=== PATIENT | male | born 1945 | race Caucasian/White ===

== ENCOUNTER → 2018-03-13 | Outpatient (CLI) | payer MEDICARE, OTHER | LOC: COL.RAD 09:14 | DX: M17.0 Bilateral primary osteoarthritis of knee (principal); M19.022 Primary osteoarthritis, left elbow; M19.021 Primary osteoarthritis, right elbow; M19.032 Primary osteoarthritis, left wrist; M47.893 Other spondylosis, cervicothoracic region; M47.896 Other spondylosis, lumbar region ==

== ENCOUNTER 2018-03-27 10:55 | Outpatient (CLI) | payer MEDICARE, OTHER ==
[~2018-03-27] VITALS: Ht 183 cm; Wt 114.5 kg
[2018-03-27 11:31] LABS: HEMATOCRIT 47.6 % (42.0-52.0); HEMOGLOBIN 17.1 g/dl (13.5-18.0); MEAN CELL VOLUME 91 fl (80.0-100.0); MEAN CORPUSCULAR HEMOGLOBIN 33 pg (27.0-31.0); MEAN CORPUSCULAR HGB CONC 36 g/dl (33.0-37.0); MEAN PLATELET VOLUME 10.4 fl (7.4-10.4); PLATELET COUNT 148 K/mm3 (130-400); RED BLOOD COUNT 5.26 M/mm3 (4.20-5.60); REDCELL DISTRIBUTION WIDTH-CV 11.9 % (11.5-14.5)
[2018-03-27 11:39] LABS: INR 1.1 (0.8-3.0); PROTHROMBIN TIME 12.4 SECONDS (9.7-12.8)
[2018-03-27 11:40] LABS: CREATININE, serum 0.8 mg/dL (0.66-1.25); POTASSIUM 3.9 mmol/L (3.4-5.0)
[2018-03-27] MEDS ORDERED: ADVIL200 MG PO (12:03)
[2018-03-27] MEDS ORDERED: NORVASC 5MG5 MG/TAB PO ×2 (12:03→12:56)
[2018-03-27] MEDS ORDERED: NEURONTIN300 MG/CAP PO (12:04)
[2018-03-27] MEDS ORDERED: GLUCOPHAGE500 MG/TAB PO (12:05)
[2018-03-27] MEDS ORDERED: PRINIVIL2.5 MG PO (12:05)
[2018-03-27] MEDS ORDERED: CRESTOR 10MG10 MG PO (12:06)
[2018-03-27] MEDS ORDERED: FLOMAX 0.40.4 MG/CAP PO (12:06)
[2018-03-27] MEDS ORDERED: HALCION 0.0.125 MG/T PO (12:07)
[2018-03-27] MEDS ORDERED: ASPIRIN 81M81 MG/TA2 PO (12:08)
[2018-03-27] MEDS ORDERED: VITAMIN D 50,1.25 MG PO (12:09)
[2018-03-27 12:10] VITALS: BP 141/87; PULSE 66; TEMP 97.5
[2018-03-27] MEDS ORDERED: PRINIVIL5 MG PO (12:57)
[2018-03-27 13:05] VITALS: BP 138/86; PULSE 65
[2018-03-27 13:20] VITALS: BP 135/87; PULSE 66
[2018-03-27 13:40] VITALS: BP 136/87; PULSE 61
[2018-03-27 13:50] VITALS: BP 135/88; PULSE 60
[2018-03-27] MEDS ORDERED: NORVASC 10MG10 MG PO (14:44)
== END 2018-03-27 15:40 | disposition home or self-care (01) ==
LOC: COL.RAD 10:55
PROVIDERS: Internal Medicine Cardiovascular Disease
DX: I08.2 Rheumatic disorders of both aortic and tricuspid valves (principal)
CPT/HCPCS: J2250; J3010

== ENCOUNTER 2018-05-15 10:58 | Day surgery (SDC) | payer MEDICARE, OTHER ==
[2018-05-15] VITALS (10 sets, daily range): BP systolic 113–151; BP diastolic 67–85; PULSE 61–82; TEMP 97.3–98.1
[~2018-05-15] VITALS: Ht 182.9 cm; Wt 114.2 kg
[~2018-05-15 10:58] MED LIST: ADVIL200 MG PO; ASPIRIN 81M81 MG/TA2 PO; CRESTOR 10MG10 MG PO; FLOMAX 0.40.4 MG/CAP PO; GLUCOPHAGE500 MG/TAB PO; HALCION 0.0.125 MG/T PO; NEURONTIN300 MG/CAP PO; NORVASC 10MG10 MG PO; NORVASC 5MG5 MG/TAB PO; PRINIVIL2.5 MG PO; PRINIVIL5 MG PO; VITAMIN D 50,1.25 MG PO
[2018-05-15] MEDS ORDERED: GLUCOPHAGE500 MG/TAB PO (12:12)
[2018-05-15] MEDS ORDERED: CRESTOR40 MG PO (12:16)
[2018-05-15] MEDS ORDERED: VITAMIN D 50,1.25 MG PO (12:17)
[2018-05-15] MEDS ORDERED: PRINIVIL40 MG PO (12:18)
[2018-05-15] MEDS ORDERED: HALCION0.25 MG PO (12:20)
[2018-05-16 01:12] VITALS: BP 128/47; PULSE 64; TEMP 98
[2018-05-16 04:42] VITALS: BP 136/73; PULSE 67; TEMP 98.7
[2018-05-16 08:39] VITALS: BP 142/79; PULSE 68; TEMP 97.8
[2018-05-16 12:30] VITALS: BP 125/68; PULSE 65; TEMP 97.4
== END 2018-05-16 16:51 | disposition home or self-care (01) ==
LOC: SDCO 10:58 → SURG 13:50 → SDCO 14:30
DX: N40.1 Benign prostatic hyperplasia with lower urinary tract symptoms (principal); R35.1 Nocturia; R39.12 Poor urinary stream; R35.0 Frequency of micturition; R39.15 Urgency of urination; E11.40 Type 2 diabetes mellitus with diabetic neuropathy, unspecified; E78.00 Pure hypercholesterolemia, unspecified; I10 Essential (primary) hypertension; N32.81 Overactive bladder; I25.10 Atherosclerotic heart disease of native coronary artery without angina pectoris; G47.33 Obstructive sleep apnea (adult) (pediatric); F32.9 Major depressive disorder, single episode, unspecified; R44.3 Hallucinations, unspecified; Z79.84 Long term (current) use of oral hypoglycemic drugs; Z87.891 Personal history of nicotine dependence; Z80.1 Family history of malignant neoplasm of trachea, bronchus and lung
CPT/HCPCS: OP; J0690; J1100; J2250; J2270; J2704; J3480; J7030

== ENCOUNTER → 2018-07-24 | Outpatient (CLI) | payer MEDICARE, OTHER ==
[~2018-07-24] MED LIST changes: +CRESTOR40 MG PO; +HALCION0.25 MG PO; +PRINIVIL40 MG PO
== END ==
LOC: COL.PUL 12:42
DX: R06.02 Shortness of breath (principal); Z87.891 Personal history of nicotine dependence
CPT/HCPCS: J7674

== ENCOUNTER 2019-01-31 10:52 | Day surgery (SDC) | payer MEDICARE, OTHER ==
[2019-01-31] VITALS (11 sets, daily range): BP systolic 112–155; BP diastolic 71–90; PULSE 67–74; TEMP 97.6
[~2019-01-31] VITALS: Ht 183 cm; Wt 113.2 kg
[2019-01-31 12:13] LABS: HEMATOCRIT 50.6 % (42.0-52.0); HEMOGLOBIN 17.4 g/dl (13.5-18.0); MEAN CELL VOLUME 92 fl (80.0-100.0); MEAN CORPUSCULAR HEMOGLOBIN 32 pg (27.0-31.0); MEAN CORPUSCULAR HGB CONC 34 g/dl (33.0-37.0); MEAN PLATELET VOLUME 10.6 fl (7.4-10.4); PLATELET COUNT 159 K/mm3 (130-400); RED BLOOD COUNT 5.49 M/mm3 (4.20-5.60); REDCELL DISTRIBUTION WIDTH-CV 12.4 % (11.5-14.5)
[2019-01-31] MEDS ORDERED: CRESTOR5 MG PO (12:18)
[2019-01-31] MEDS ORDERED: ASPIRIN E.C. 8181 MG PO (12:19)
[2019-01-31] MEDS ORDERED: COLACE 100100 MG/CAP PO (12:20)
[2019-01-31] MEDS ORDERED: ADVIL PM 38 MG-1 TAB PO (12:20)
[2019-01-31 12:22] LABS: INR 1.1 (0.8-3.0); PROTHROMBIN TIME 12.8 SECONDS (9.7-12.8)
[2019-01-31 12:23] LABS: CALCIUM 9.6 mg/dL (8.4-10.2); CREATININE, serum 0.98 (0.66-1.25)
[2019-01-31] MEDS ORDERED: RT SPIRIVA18 MCG IH (13:12)
[2019-01-31] MEDS ORDERED: RT ADVAIR 128 DISKUS IH (13:13)
--- NOTE | 2019-01-31 13:47 | NUR ---
PLEASE SEE MERGE FOR ALL MEDICATION ADMINISTRATION TIMES, SEDATION ASSESSMENT DATA ANDDURING AND POST PROCEDURE.
[2019-01-31] MEDS ORDERED: TOPROL XL 25MG25 MG PO (14:46)
--- NOTE | 2019-01-31 15:00 | NUR ---
PT TO [facility] VIA BED FROM [facility], PT IS AWAKE AND ALERT. DOES C/O OCCASIONAL LEFT SHOULDER AND RIGHT SIDE DISCOMFORT, CALL LIGHT IN REACH, INSTRUCTED ON BEDREST AND NOT MOVING RIGHT LEG. HAS TR BAND ON SITE CLEAN AND DRY, SOFT ABOVE SITE WITH 14CC OF AIR, CMS CHECKS WNL.
--- NOTE | 2019-01-31 15:15 | NUR ---
NOW IN ROOM, PT TRIES TO USE URINAL WITH ASSIST. NO OTHER CHANGES
--- NOTE | 2019-01-31 16:00 | NUR ---
pt uses urinal x2, ate lunch, no c/o
--- NOTE | 2019-01-31 17:00 | NUR ---
TR band released per orders, 5cc then 5cc, no bleeding or swelling noted, area then dressed with bandaid and coban. pt has no c/o, reviewing discharge inst. with pt and , appt for office made and information given to pt, also new RX ordered, will pear picker information sent with pt on new drug, also reviewed precautions with pt on conscious sedation and activity. reivewed site care x2, and may shower only tomorrow afternoon. verbal understanding from pt with instuctions.
--- NOTE | 2019-01-31 19:00 | NUR ---
pt sat on side of bed, tolerated well, walked to b/r to void, gait stable. reviewed activity orders again with pt and . iv d'cd intact, site remains the same, up and dressed in room, discharged via w/c to car with at 1930
== END 2019-01-31 19:33 | disposition home or self-care (01) ==
LOC: COL.CAR 10:52
PROVIDERS: Internal Medicine Cardiovascular Disease
DX: I08.3 Combined rheumatic disorders of mitral, aortic and tricuspid valves (principal); I25.10 Atherosclerotic heart disease of native coronary artery without angina pectoris; I10 Essential (primary) hypertension; G47.33 Obstructive sleep apnea (adult) (pediatric); I77.810 Thoracic aortic ectasia; Z79.899 Other long term (current) drug therapy; Z79.82 Long term (current) use of aspirin; E11.9 Type 2 diabetes mellitus without complications; Z79.84 Long term (current) use of oral hypoglycemic drugs; Z87.891 Personal history of nicotine dependence; E78.5 Hyperlipidemia, unspecified
CPT/HCPCS: J1644; J3010; Q9967

== ENCOUNTER 2020-06-25 09:24 | Outpatient (CLI) | payer MEDICARE, OTHER ==
[~2020-06-25] VITALS: Ht 183.2 cm; Wt 113.9 kg
[~2020-06-25 09:24] MED LIST changes: +ADVIL PM 38 MG-1 TAB PO; +ASPIRIN E.C. 8181 MG PO; +COLACE 100100 MG/CAP PO; +CRESTOR5 MG PO; +RT ADVAIR HFA 2312 G IH; +SPIRIVA RE2.5 MCG/Ac IH; +TOPROL XL 25MG25 MG PO
[2020-06-25 10:11] VITALS: BP 135/88; PULSE 61; TEMP 98.3
[2020-06-25 10:48] LABS: HEMATOCRIT 51.8 % (42.0-52.0); MEAN CELL VOLUME 92 fl (80.0-100.0); MEAN CORPUSCULAR HEMOGLOBIN 33 pg (27.0-31.0); MEAN CORPUSCULAR HGB CONC 35 g/dl (33.0-37.0); MEAN PLATELET VOLUME 10.3 fl (7.4-10.4); PLATELET COUNT 171 K/mm3 (130-400); RED BLOOD COUNT 5.63 M/mm3 (4.20-5.60); REDCELL DISTRIBUTION WIDTH-CV 12.4 % (11.5-14.5)
[2020-06-25] MEDS ORDERED: NORVASC 10MG10 MG PO (10:54)
[2020-06-25 10:55] LABS: HEMOGLOBIN 18.3 g/dl (13.5-18.0)
[2020-06-25] MEDS ORDERED: TOPROL XL 50MG50 MG PO (10:57)
[2020-06-25 10:58] LABS: CREATININE, serum 0.82 (0.66-1.25); POTASSIUM 4.1 mmol/L (3.4-5.0)
[2020-06-25 10:59] LABS: INR 1.1 (0.8-3.0); PROTHROMBIN TIME 12.5 SECONDS (9.7-12.8)
[2020-06-25] MEDS ORDERED: DITROPAN XL10 MG PO (11:02)
[2020-06-25 11:46] VITALS: BP 125/87; PULSE 57
--- NOTE | 2020-06-25 11:46 | NUR ---
BS REPORT RECEIVED FROM KARON MONTES DE [facility]. PT RESTING COMFORTABLY ON COT AFTER ERIC, HE IS PWD, WITH REG RESPIRATIONS, PT DENIES ANY SOB OR OTHER COMPLAINT. PT ABLE TO DRINK ORANGE JUICE WITH NO PROBLEM. WCTM
[2020-06-25 12:15] VITALS: BP 121/96; PULSE 60
--- NOTE | 2020-06-25 12:30 | NUR ---
DR. Murphy has been to bs to discuss test result and poc with pt. pt verbalized understanding of this conversation and of the written fu/dc instruction that we reviewed together. iv was dc'd cath intact, dressing applied. pt ambulated to bathroom with cane with steady gait prior to discharge. to exit via wheelchair.
== END 2020-06-25 12:45 | disposition home or self-care (01) ==
LOC: COL.RAD 09:24
PROVIDERS: Internal Medicine Cardiovascular Disease
DX: I35.9 Nonrheumatic aortic valve disorder, unspecified (principal); Z20.828 Contact with and (suspected) exposure to other viral communicable diseases
CPT/HCPCS: J0330; J2704; J7030

== ENCOUNTER → 2021-01-11 | Day surgery (SDC) | payer MEDICARE, OTHER ==
[2021-01-11] VITALS (12 sets, daily range): BP systolic 117–156; BP diastolic 75–94; PULSE 60–77; TEMP 97.6
[~2021-01-11] VITALS: Ht 182.9 cm; Wt 103.4 kg
[~2021-01-11] MED LIST changes: +DITROPAN XL10 MG PO; +NEURONTIN100 MG/CAP PO; -NEURONTIN300 MG/CAP PO; +TOPROL XL 50MG50 MG PO
[2021-01-11 12:36] LABS: HEMATOCRIT 50.2 % (42.0-52.0); MEAN CELL VOLUME 91 fl (80.0-100.0); MEAN CORPUSCULAR HEMOGLOBIN 33 pg (27.0-31.0); MEAN CORPUSCULAR HGB CONC 36 g/dl (33.0-37.0); MEAN PLATELET VOLUME 10.5 fl (7.4-10.4); PLATELET COUNT 160 K/mm3 (130-400); RED BLOOD COUNT 5.51 M/mm3 (4.20-5.60); REDCELL DISTRIBUTION WIDTH-CV 12.1 % (11.5-14.5)
[2021-01-11 12:40] LABS: INR 1.2 (0.8-3.0); PROTHROMBIN TIME 12.9 SECONDS (9.7-12.8)
[2021-01-11 12:43] LABS: PARTIAL THROMBOPLASTIN TIME 31.7 SECONDS (26.0-37.0)
[2021-01-11 12:52] LABS: CALCIUM 9.5 mg/dL (8.4-10.2); CREATININE, serum 0.93 (0.66-1.25); POTASSIUM 3.6 mmol/L (3.4-5.0)
--- NOTE | 2021-01-11 14:15 | NUR ---
PT BACK TO [facility] AFTER [facility]/ RIGHT AND LEFT HEART CATH. TR BAND TO RT RADIAL SITE, CMS INTACT DISTAL. SAFEGUARD DRESSING TO RT GROIN ARTERIAL AND VENOUS PUNCTURE SITES. 40 ML IN THIS DRESSING. STROND DP PULSES BILAT, GOOD CMS DISTAL. WCTM. TELEMETRY IMPLEMENTED, SINUS RHYTHM ON MONITOR. PT IS REQUIRING 3-4L/NC O2 TO MAINTAIN SATS >90. PT REPORTS DOES NOT USUALLY LIE FLAT DUE TO HIS BREATHING, FEELS OKAY ON O2. LS CLEAR IN UPPERS. IV SALINE LOCKED.
--- NOTE | 2021-01-11 20:00 | NUR ---
BOTH PUNCTURE SITES LOOK GOOD. TR BAND HAS BEEN DEFLATED AND SITE DRESSED WITH BANDAID, FOLDED 2X2 AND COBAN. CMS INTACT DISTAL. SAFEGUARD DRESSING HAS BEEN DEFLATED AND RT GROIN REMAINS SOFT WITH NO PROBLEMS. CMS INTACT DISTAL. I REVIEWED DC AND FU INSTRUCTIONS WITH PT WHO VERBALIZED UNDERSTANDING. PLAN TO REMOVE SAFEGUARD DRESSING AND REDRESS RT FEMORAL PUNCTURE SITES PRIOR TO HIS DISCHARGE. PLAN FOR END OF BEDREST AT 2114.
== END ==
LOC: COL.CAR 11:15
PROVIDERS: Internal Medicine Cardiovascular Disease
DX: I25.10 Atherosclerotic heart disease of native coronary artery without angina pectoris (principal); I35.1 Nonrheumatic aortic (valve) insufficiency; I77.819 Aortic ectasia, unspecified site; I72.3 Aneurysm of iliac artery; I73.9 Peripheral vascular disease, unspecified; E11.9 Type 2 diabetes mellitus without complications; I10 Essential (primary) hypertension; E78.5 Hyperlipidemia, unspecified; G47.33 Obstructive sleep apnea (adult) (pediatric); F32.9 Major depressive disorder, single episode, unspecified; Z79.84 Long term (current) use of oral hypoglycemic drugs; Z79.899 Other long term (current) drug therapy; Z79.82 Long term (current) use of aspirin; Z99.89 Dependence on other enabling machines and devices; Z20.822 Contact with and (suspected) exposure to COVID-19
CPT/HCPCS: C1760; C1769; C1894; J1644; J2250; J2704; J3010; Q9967